=== PATIENT | female | born 1995 | race Caucasian/White ===

== ENCOUNTER 2024-08-20 15:40 | Outpatient (CLI) | payer OTHER, SELFPAY ==
--- NOTE | 2024-08-21 17:33 | PC.NURSE ---
Pt called stating that she was seen in [facility] today and was waiting on the results of her GC Chlamydia. Notified pt that none were detected per her chart.
== END 2024-08-20 15:41 | disposition home or self-care (01) ==
PROVIDERS: Visit Provider Nurse Practitioner Family
DX: R30.0 Dysuria (principal); Z11.3 Encounter for screening for infections with a predominantly sexual mode of transmission
CPT/HCPCS: 87491; 87591